=== PATIENT | male | born 1955 | race Two or more races ===

== ENCOUNTER 2024-04-24 06:51 | Day surgery (SDC) | payer MEDICARE, MEDICAID ==
[2024-04-20 15:57] LABS: Urine Bacteria None Seen /hpf (None Seen)
[2024-04-20 16:26] LABS: Basophils # (auto) 0.1 10 ^3/uL (0-0.2); Basophils % (auto) 1.8 % (0.0-2.0); Eosinophils # (auto) 0.1 10 ^3/uL (0-0.8); Eosinophils % (auto) 1.7 % (0.0-7.0); Hematocrit 46.2 % (41.0-53.0); Lymphocytes # (auto) 1.2 10 ^3/uL (0.4-5.4); Lymphocytes % (auto) 15.6 % (10.0-50.0); Mean Corpuscular Hemoglobin 30.9 pg (28.0-32.0); Mean Corpuscular Hgb Conc. 34.5 g/dL (32.0-36.0); Mean Corpuscular Volume 89.4 fL (80.0-100.0); Monocytes # (auto) 0.6 10 ^3/uL (0-1.3); Monocytes % (auto) 8.4 % (0.0-12.0); Neutrophils # (auto) 5.4 10 ^3/uL (1.6-8.6); Neutrophils % (auto) 72.5 % (37.0-80.0); Nucleated Red Blood Cells % 0.1 %; Platelet Count (auto) 193 10^3/uL (140-450); Red Blood Cells 5.17 10^6/uL (4.5-5.90); Red Cell Distribution Width 14.9 % (11.8-14.3); White Blood Cell 7.5 10^3/uL (4.4-10.8)
[2024-04-20 16:44] LABS: Albumin 4.3 g/dL (3.2-4.8); Alkaline Phosphatase 71 U/L (46-116); Anion Gap 7 (5-15); Aspartate Aminotransferase 29 U/L (13-40); Calcium 9.8 mg/dL (8.7-10.4); Carbon Dioxide 26 mmol/L (20-31); Chloride 105 mmol/L (98-107); Potassium 4.6 mmol/L (3.5-5.1); Sodium 138 mmol/L (136-145); Urine Blood Negative /uL (Negative); Urine Clarity Clear (Clear); Urine Color Yellow (Yellow); Urine Mucus FEW (None Seen); Urine Protein, UAD Negative (Negative); Urine Specific Gravity 1.032 (1.001-1.035); Urine Squamous Epithelial Cell FEW /hpf (<5); Urine Urobilinogen Normal (Negative); Urine WBC 1 /hpf (0 - 3); Urine pH 5.5 (5.0-9.0)
[2024-04-20 16:45] LABS: Bilirubin, Total 0.9 mg/dL (0.2-1.0); Total Protein 6.9 g/dL (5.7-8.2)
[2024-04-20 16:49] LABS: Alanine Aminotransferase 45 U/L (7-40); Blood Urea Nitrogen 24 mg/dL (9-23); Glucose 111 mg/dL (74-106)
[2024-04-20 17:53] LABS: INR 1.11 (0.9-1.15); Prothrombin Time 11.7 sec (9.3-11.8)
[~2024-04-24] VITALS: Ht 177.8 cm; Wt 82.1 kg
[~2024-04-24 06:51] MED LIST: ATOR-507 PO; CARB25TA79 PO; DIGO0.12 PO; FLUO1TAB14 PO; METO25TA5 PO; PRAZ1CAP2 PO
[2024-04-24] MEDS ORDERED: fentaNYL CITRATE 100 MCG/2 ML VL ONE (08:44)
[2024-04-24] MEDS ORDERED: ONDANSETRON HCL 4 MG/2 ML VIAL ONE (08:44)
[2024-04-24] MEDS ORDERED: MIDAZOLAM HCL 2MG/2ML 2ml VIAL (1mg/ml) ONE (08:44)
[2024-04-24] MEDS ORDERED: KETAMINE 50mg/ML 1ml syringe ONE (08:44)
[2024-04-24] MEDS ORDERED: LIDOCAINE HCL 2% TOP JELLY 5ML TOP ONE (08:44)
[2024-04-24] MEDS ORDERED: PROPOFOL 10 MG/ML 20 ML IV ONE (08:44)
[2024-04-24] MEDS ORDERED: MEPERIDINE HCL (25 MG/ML) 1ML VIAL ONE (08:44)
[2024-04-24] MEDS ORDERED: LIDOCAINE 1% INJ PF 5ML AMP ONE (08:44)
[2024-04-24] MEDS ORDERED: BUPIVACAINE HCL 0.25% P/F 10 ML VIAL ONE (09:18)
[2024-04-24] MEDS ORDERED: LIDOCAINE 1% HCL (LOCAL ANESTH.) INJ 20ML MDV ONE (09:18)
[2024-04-24] MEDS: ceFAZolin 2 GM/D5W100ml 100 ML IV ONE (10:08)
[2024-04-24] MEDS: BUPIVACAINE 0.25% INJ 50ML VIAL ONE (10:27)
[2024-04-24] MEDS: LIDOCAINE 1% HCL (LOCAL ANESTH.) INJ 20ML MDV ONE (10:27)
[2024-04-24 11:26] VITALS: PULSE 78; RESP 16; O2SAT 100
[2024-04-24 11:30] VITALS: TEMP 97.4
[2024-04-24 12:10] VITALS: BP 120/74; PULSE 63; RESP 16; O2SAT 94
--- NOTE | 2024-04-24 12:55 | DVH ---
C-ARM FLUOROSCOPY: PROCEDURE: Trigger finger release FLUOROSCOPY TIME: 6.1 sec DAP: 0.11 mgy FINDINGS: Spot intraoperative C arm radiographs demonstrating trigger finger release. IMPRESSION: Please refer to surgical report for detailed findings.
--- NOTE | 2024-04-26 16:34 | DVHOP2 ---
Operative Report - 2 Report Details Date: 04/24/24 Preop Diagnosis: Right thumb carpometacarpal arthritis, ring trigger finger Postop Diagnosis: as above Surgeon: Alex Rosario MD Model Maker: Tariq HERNÁNDEZ Anesthesiologist: Elmo PORTILLO Anesthesia: General Consent: The patient was informed of the risks and benefits of the procedure. These include but are not limited to complications of anesthesia, postoperative infection, incomplete relief of symptoms, recurrence of symptoms, damage to blood vessels, nerves and tendons, deep venous thrombosis, pulmonary embolism and possible need for repeat surgery in the future. Estimated Blood Loss: 5 cc Name of Procedure Performed Right hand trapezctomy, APL suspensionplasty, ring trigger finger release; intraop fluoro Procedure Details Procedure Details: Patient is a pleasant RHD F who has had long standing Left thumb pain. Risks benefits options and alternatives discussed in depth and patient agrees to proceed with surgery. Patient noted to have large osteophytes around her thumb CMC joint/ carpal tunnel and Dequervain tendonitis. Patient was seen and evaluated in the preoperative holding area. All final questions were answered. Left wrist was marked. Patient was brought into the operating room and placed supine on the operating room table. A well padded tourniquet was placed on the right arm. General anesthesia induced. Limb was exsanguinated using an Esmarch and tourniquet elevated to 250 mmHg. Attention was turned to CMC. A curvilinear incision was marked and made from the first metacarpal extending dorsally over the first dorsal extensor compartment. This was incised sharply with a 15 blade scalpel through skin and subcutaneous tissue. Care was taken to identify the dorsal branch of the radial artery which was identified and protected. Once the artery protected a sharp dissection carried through the first CMC joint. Capsulotomy performed. Trapezium was confirmed under fluoro with a pin. trapezectomy was performed longitudinal traction was placed to evaluate the STT joint. There was minimal STT arthritis. Wound was copiously irrigated. We then harvested the APL tendon first dorsal compartment was released dorsally as possible and the ulnar most slip of the APL tendon was selected. This was transected at the musculotendinous junction. A stay suture was placed using 3-0 ethibond. TI was then delivered distally into the wound. A kimberly was made in the FCR tendon. Model Maker maintained traction on the thumb and the PAL tendon was woven through the FCR and secure with 3-0 ethibond sutures. The remaining tail was then woven in to an anchovy fashion and stuffed into CMC empty shell. Once performed, fluro evaluation done. . Incision was made over ring finger a1 ramón. Careful dissection made to A1 ramón and released. Patient flexor tendons intact.The wound was then closed with capsular closure suing 3-0 ethbiond and then subcutaneous closure with 4-0 vicryl and a 3-0 nylon for the skin. Toruniquet release. A thumb spica splint placed and patient awoken from anesthesia. Patient transferred to Recovery in stable condition. All final counts were correct. There were no complications. Condition Good Disposition Home ALEX ROSARIO MD Apr 26, 2024 16:34
== END 2024-04-24 12:36 | disposition home or self-care (01) ==
LOC: SUR 06:51
PROVIDERS: ATTEND Orthopaedic Surgery Adult Reconstructive Orthopaedic Surgery
DX: M18.11 Unilateral primary osteoarthritis of first carpometacarpal joint, right hand (principal); M65.341 Trigger finger, right ring finger; I10 Essential (primary) hypertension; I25.10 Atherosclerotic heart disease of native coronary artery without angina pectoris; I25.2 Old myocardial infarction; J45.909 Unspecified asthma, uncomplicated; M19.90 Unspecified osteoarthritis, unspecified site; F43.10 Post-traumatic stress disorder, unspecified; F32.A Depression, unspecified; Z98.890 Other specified postprocedural states
CPT/HCPCS: 25447; 26055; 36415; 73120; 80053; 81001; 85025; 85610; 85730; J2003; J2175; J2250; J2405; J2704; J3010; 76000; J3490